=== PATIENT | female | born 1950 | race Two or more races ===

== ENCOUNTER 2024-07-18 14:42 | Emergency (ER) | payer OTHER ==
[~2024-07-18] VITALS: Ht 154.9 cm; Wt 91.3 kg
--- NOTE | 2024-07-18 17:02 | ED.PDOC ---
Back pain HPI HPI Comments 73 year female presents for atraumatic cervical pain x 1 day Woke up with pain Tried tylenol with minimal improvement no other complaint Chief Complaint: Neck Pain Time Seen by MD: 16:18 Reviewed Notes: Nurses Notes, Medications, Allergies Allergies: Coded Allergies: NO KNOWN ALLERGIES (Unverified , 07/18/24) Home Meds Active Scripts Diclofenac Sodium (Topical) (Voltaren Arthritis Pain) 1 % Gel, 1 APPLIC EX BID for 30 Days, #60 GRAMS 0 Refills Prov:CONSUELO PERKINS NP 07/18/24 Ibuprofen (Ibuprofen) 600 Mg Tab, 1 TAB PO TID for 10 Days, #30 TAB 0 Refills Prov:CONSUELO PERKINS NP 07/18/24 Lidocaine (LIDODERM 5% TOPICAL PATCH) 1 Patch Ph, 1 PATCH TOP DAILY for 30 Days, #30 PATCH 0 Refills Prov:CONSUELO PERKINS NP 07/18/24 Methocarbamol (Methocarbamol) 500 Mg Tab, 0.5 TAB PO Q12HP PRN for 30 Days, #30 TAB 0 Refills Prov:CONSUELO PERKINS NP 07/18/24 Information Source: Patient Mode of Arrival: Ambulatory Past Medical History PAST MEDICAL HISTORY: Denies Family History Family History: Reviewed,noncontributory to illness Social History Smoker: Non-Smoker Alcohol: Denies ETOH Use Drugs: Denies Drug Use All Other Systems: Reviewed and Negative (per hpi) Physical Exam General Appearance: No Apparent Distress, Normal HEENT: Normal ENT Inspection, Pharynx Normal, TMs Normal Neck: Normal, Normal Inspection, Other (mild tenderness with lateral movements) Respiratory: Chest Non-Tender, Lungs Clear, No Accessory Muscle Use, No Respiratory Distress, Normal Breath Sounds Cardiovascular: No Edema, No JVD, No Murmur, No Gallop, Normal Peripheral Pulses, Regular Rate/Rhythm Breast Exam: Deferred Gastrointestinal: No Organomegaly, Non Tender, No Pulsatile Mass, Normal Bowel Sounds, Soft Genitalia: Deferred Pelvic: Deferred Rectal: Deferred Extremities: No calf tenderness, Normal capillary refill, Normal inspection, Normal range of motion, Non-tender, No pedal edema Musculoskeletal : Apperance: Normal Neurologic: Alert, 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 Was a procedure done?: No Back Pain Differential Dx Differential Diagnosis: Musculoskeletal Pain X-Ray, Labs, Meds, VS Vital Signs Date Time Temp Pulse Resp B/P (MAP) Pulse Ox O2 Delivery O2 Flow Rate FiO2 07/18/24 17:27 99.3 80 18 119/62 (81) 98 99.3 07/18/24 17:27 80 18 98 Room Air 07/18/24 15:12 99.3 80 18 119/62 (81) 98 99.3 Current Medications Medications (Trade) Dose Ordered Sig/Sergio Route Start Time Stop Time Status Last Admin Acetaminophen/ Hydrocodone Bitart ([place] 7.5/325MG Tab) 1 tab ONCE ONCE PO 07/18/24 17:15 07/18/24 17:16 DC 07/18/24 17:26 X-Ray, Labs, Meds, VS Comment + neck pain radiating to bilateral upper extremities ED Workup: Defer C-Spine imaging given negative by NEXUS criteria Given History, Exam the patient appears to have a cervical radiculopathy. Patient appears to be low risk for complications or other emergent conditions such as anginal equivalent, nicolas cervical instability, arterial dissection, osteomyelitis, epidural abscess, central cord syndrome, c-spine fracture, CVA, other spinal emergencies Rx: NSAIDs, outpatient physical therapy evaluation and recommendation for home exercises Disposition: Discharge. The patient has been given strict return precautions and understands the need to follow up within 48 hours with their primary care provider Time of 1ST Reevaluation: 16:59 Reevaluation 1ST: Improved Patient Education/Counseling: Diagnosis, Treatment Family Education/Counseling: Diagnosis, Treatment Departure 1 Departure Time of Disposition: 17:36 Impression: Primary Impression: Cervicalgia Disposition: HOME / SELF CARE / HOMELESS Condition: Stable e-Prescriptions Diclofenac Sodium (Topical) (Voltaren Arthritis Pain) 1 % Gel 1 APPLIC EX BID for 30 Days, #60 GRAMS 0 Refills Prov: CONSUELO PERKINS NP 07/18/24 Ibuprofen (Ibuprofen) 600 Mg Tab 1 TAB PO TID for 10 Days, #30 TAB 0 Refills Prov: CONSUELO PERKINS 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
[2024-07-18] MEDS: HYDROcodone-ACET 7.5/325MG TAB PO ONE (17:26)
[2024-07-18 17:27] VITALS: BP 119/62; PULSE 80; RESP 18; TEMP 99.3; O2SAT 98
[2024-07-18] MEDS ORDERED: IBUP-1454 PO (17:37)
[2024-07-18] MEDS ORDERED: METH-1181 PO (17:37)
[2024-07-18] MEDS ORDERED: LIDO5DIS21 TOP (17:37)
[2024-07-18] MEDS ORDERED: DICL1GEL59 EX (17:37)
== END 2024-07-18 17:48 | disposition home or self-care (01) ==
LOC: ER 14:42
DX: M54.2 Cervicalgia (principal)